=== PATIENT | male | born 1965 | race Caucasian/White ===

== ENCOUNTER → 2016-04-01 | Outpatient (CLI) | payer OTHER ==
[~2016-04-01] MED LIST: GADOBUTROL 10 ML VIAL IVP ONE
--- NOTE | 2016-04-01 13:49 | MR ---
MRI of the Head (Before and Following Gadolinium) Clinical Indications: Prior left frontal glioblastoma resection. Restaging. Technique: T1-weighted images were obtained sagittally and axially. Diffusion-weighted, inversion r ecovery, and fast T2-weighted axial images were obtained. T1-weighted axial and coronal images were obtained after intravenous administration of 9 mL of Gadavist. Comparison examination: May 16, 2015. Findings: Postsurgical changes are again noted in the upper left frontal lobe with secondary cystic encephalomalacia. No areas of abnormal enhancement within the operative bed to suggest local recurren t disease. The brain is otherwise benign in features, with [id number] periventricular hyperintensity bilat erally. No evidence of recurrent mass or mass effect. Craniocervical junction is normal. Skull base a nd cerebellum appear normal. Carotid and vertebral basilar flow voids are present. Impression: Stable MRI of the brain without and with contrast. Status post surgical resection of high left frontal glioma, with secondary encephalomalacia. No evidence of abnormal enhancement to suggest local recurrent disease..
== END ==
LOC: FIMAGING 11:53
PROVIDERS: ATTEND Internal Medicine Hematology & Oncology
DX: Z85.841 Personal history of malignant neoplasm of brain (principal); Z08 Encounter for follow-up examination after completed treatment for malignant neoplasm; Z98.890 Other specified postprocedural states
CPT/HCPCS: A9585

== ENCOUNTER → 2016-09-09 | Outpatient (CLI) | payer BC | LOC: FIMAGING 07:54 | PROVIDERS: ATTEND Internal Medicine Hematology & Oncology | DX: C71.1 Malignant neoplasm of frontal lobe (principal) | CPT/HCPCS: A9585 ==

== ENCOUNTER → 2016-12-26 | Outpatient (CLI) | payer BC | LOC: FIMAGING 12:11 | PROVIDERS: ATTEND Internal Medicine Hematology & Oncology | DX: C71.1 Malignant neoplasm of frontal lobe (principal) | CPT/HCPCS: A9585 ==